=== PATIENT | male | born 1990 | race Caucasian/White ===

== ENCOUNTER 2022-05-22 11:21 | Emergency (ER) | payer SELFPAY ==
[~2022-05-22] VITALS: Ht 172.7 cm; Wt 70.0 kg
[2022-05-22 11:26] VITALS: BP 155/105
== END 2022-05-22 17:47 | disposition home or self-care (01) ==
LOC: ER 11:21
DX: R44.3 Hallucinations, unspecified (principal); T65.91XA Toxic effect of unspecified substance, accidental (unintentional), initial encounter; Y92.89 Other specified places as the place of occurrence of the external cause; F15.10 Other stimulant abuse, uncomplicated
CPT/HCPCS: 99283